=== PATIENT | male | born 1975 | race Native Hawaiian/Other Pacific Islander ===

== ENCOUNTER 2017-05-23 14:27 | Emergency (ER) | payer BC ==
[2017-05-23 14:35] VITALS: TEMP 97.8
[2017-05-23 15:20] LABS: BASO # 0.1 K/uL (0.0-0.2); BASO % 1.1 % (0.0-2.0); EOS # 0.1 K/uL (0.0-0.7); EOS % 2.3 % (0.0-4.0); HEMOGLOBIN 16.7 g/dL (12.0-18.0); LYMPH # 2.3 K/uL (1.0-4.3); LYMPH % 42.4 % (20.0-40.0); MEAN CELL VOLUME 87.1 fL (80.0-94.0); MEAN CORPUSCULAR HGB CONC 34.4 g/dL (33.0-37.0); MEAN PLATELET VOLUME 7.6 fL (7.2-11.7); MONO # 0.6 K/uL (0.0-0.8); MONO % 11.3 % (0.0-10.0); NEUT # 2.3 K/uL (1.8-7.0); NEUT % 42.9 % (50.0-75.0); NRBC % 0.1 % (0.0-2.0); RBC 5.55 Mil/uL (4.40-5.90); RED CELL DISTRIBUTION WIDTH 14.2 % (11.5-14.5); WHITE BLOOD COUNT 5.3 K/uL (4.8-10.8)
[2017-05-23 15:43] LABS: CALCIUM 8.7 mg/dl (8.6-10.4); GFR AFRICAN-AMERICAN > 60; GFR NON-AFRICAN AMERICAN > 60; LIPASE 274 U/L (23-300)
[2017-05-23 15:47] LABS: ALB/GLOB RATIO 1.2 (1.0-2.1); ALBUMIN 4.5 g/dL (3.5-5.0); ALT/SGPT 32 U/L (21-72); AST/SGOT 30 U/L (17-59); BLOOD UREA NITROGEN 12 mg/dL (9-20)
[2017-05-23 15:53] LABS: URINE BILIRUBIN NEGATIVE (NEGATIVE); URINE BLOOD NEGATIVE (NEGATIVE); URINE CLARITY Clear (Clear); URINE COLOR Colorless (YELLOW); URINE GLUCOSE (UA) NORMAL (Normal); URINE LEUKOCYTE ESTERASE NEG Leu/uL (Negative); URINE PROTEIN NEGATIVE (NEGATIVE); URINE UROBILINOGEN NORMAL mg/dL (0.2-1.0)
[2017-05-23 15:55] LABS: BARBITURATES, UR NEGATIVE (NEGATIVE); BENZODIAZEPINES, UR NEGATIVE (NEGATIVE); OPIATES, UR NEGATIVE (NEGATIVE); PHENCYCLIDINE, UR NEGATIVE (NEGATIVE)
--- NOTE | 2017-05-23 16:23 | C.PDOC ---
History Of Present Illness 41 year old male presents to the ED for evaluation of cramping abdominal pain and a syncopal episode which occurred while he was at work earlier today. 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 He states his abdominal pain caused him to clump to the ground and have momentary loss of consciousness after a period of greyout. Patient immediately felt palpitations and returned to his baseline neurological status. Patient denies dizziness, vision change, nausea, vomiting. Patient states he has been taking osmotic laxatives to relieve constipation for the past week. His diet normally consists of rice, bread, cooked vegetables, scant raw meat, and salad Time Seen by Provider: 05/23/17 14:50 Chief Complaint (Nursing): Chest Pain History Per: Patient History/Exam Limitations: no limitations Onset/Duration Of Symptoms: Hrs Current Symptoms Are (Timing): Better Quality: "Pain", Other (cramping ) Additional History Per: Patient Past Medical History Reviewed: Historical Data, Nursing Documentation, Vital Signs Vital Signs: Last Vital Signs Temp 97.8 F 05/23/17 14:33 Pulse 71 05/23/17 16:30 Resp 16 05/23/17 16:30 BP 142/81 05/23/17 16:30 Pulse Ox 99 05/23/17 23:00 - Medical History PMH: No Chronic Diseases Surgical History: No Surg Hx Family History: States: Unknown Family Hx - Social History Hx Alcohol Use: No Hx Substance Use: No Review Of Systems Eyes: Negative for: Vision Change Gastrointestinal: Negative for: Nausea, Vomiting Neurological: Positive for: Other (LOC ). Negative for: Dizziness Physical Exam - Physical Exam Appears: Non-toxic, No Acute Distress Skin: Warm, Dry, Other (suprapubic scaling with minimal erythema 6x6 cm) Head: Atraumatic, Normacephalic Eye(s): bilateral: Normal Inspection Oral Mucosa: Moist Neck: Supple Chest: Symmetrical, No Deformity, No Tenderness Cardiovascular: Rhythm Regular, No Murmur Respiratory: Normal Breath Sounds, No Rales, No Rhonchi, No Wheezing Gastrointestinal/Abdominal: Soft, No Guarding, No Rebound, Other (dull and tympanic to percussion ) Extremity: Normal ROM, Capillary Refill (less than 2 seconds ) Neurological/Psych: Oriented x3, Normal Speech, Normal Cognition ED Course And Treatment - Laboratory Results Result Diagrams: 05/23/17 15:15 05/23/17 15:15 Lab Interpretation: Normal (trop neg.) ECG: Interpreted By Me ECG Rhythm: Sinus Rhythm ECG Interpretation: Normal Rate From EC O2 Sat by Pulse Oximetry: 99 (on RA ) Pulse Ox Interpretation: Normal - Radiology CXR: Interpreted by Me CXR Interpretation: Yes: No Acute Disease - Other Rad abd x 2 X-Ray: Interpreted by Me (moderate stool and gas) Progress Note: Bloodwork, urinalysis, EKG, Obstructive Series Abdomen ordered and reviewed. Reevaluation Time: 16:21 Reassessment Condition: Improved Medical Decision Making Medical Decision Making: belly cramping due to laxative abuse and poor diet no sig constipation now vasovagal syncope, initially tima then immediately tachy (per hx) and normal w/ u defer head CT, not indicated. tinea cruris, prob related to hot/humid work environment with excessive walking as a air conditioning installer supervisor failed 1 week of PO diflucan by PMD Lotrisone topical for 1 week. Disposition Doctor Will See Patient In The: Office Counseled Patient/Family Regarding: Studies Performed, Diagnosis - Disposition Referrals: José Luis Noguera MD [Staff Provider] - Disposition: HOME/ ROUTINE Disposition Time: 16:22 Condition: GOOD Additional Instructions: diet and exercise changes as recommended 7 fresh fruits and vegetables daily Drink plenty of water/tea Avoid overuse of laxatives- may cause severe belly pains. Normal evaluation today: labs/urinalysis/CXR/abd films/ekg Prescriptions: Clotrimazole/Betamethasone [Lotrisone] 15 gm EXT BID #1 tube Instructions: Constipation in Adults, Syncope (Fainting) (DC), Jock Itch (DC) Forms: [employer] (Citizen Of [place]) - Clinical Impression Clinical Impression: Vasovagal syncope, Laxative abuse, Tinea cruris - Scribe Statement The provider has reviewed the documentation as recorded by the Scribe (Tania Walton) Provider Attestation: All medical record entries made by the Scribe were at my direction and personally dictated by me. I have reviewed the chart and agree that the record accurately reflects my personal performance of the history, physical exam, medical decision making, and the department course for this patient. I have also personally directed, reviewed, and agree with the discharge instructions and disposition.
--- NOTE | 2017-05-23 16:24 | RAD ---
PROCEDURE: Radiographs of the chest and abdomen (obstructive series) HISTORY: Abdominal pain COMPARISON: No prior. TECHNIQUE: AP radiograph of the chest, with upright and supine radiographs of the abdomen. FINDINGS: CHEST: Lungs: The lungs are well inflated and clear. Cardiovascular: Normal size heart. No pulmonary vascular congestion. Pleura: No pleural fluid. No pneumothorax. Other findings: None. ABDOMEN AND PELVIS: Bowel: The bowel gas pattern is nonspecific. No evidence of mechanical obstruction. Free air: None. Bones: Unremarkable. Other findings: None. IMPRESSION: Nonobstructive bowel-gas pattern. Clear lungs.
[2017-05-23 16:31] VITALS: BP 142/81; PULSE 71; RESP 16
[2017-05-23 17:15] VITALS: O2SAT 99
--- NOTE | 2017-05-24 23:26 | CARD ---
APPROVED REPORT EKG Measurement Heart [id number] ME 142P62 [id number] <Conclusion> Normal sinus rhythm Normal ECG
== END 2017-05-23 16:30 | disposition home or self-care (01) ==
LOC: C.ER 14:27
DX: R55 Syncope and collapse (principal); F55.2 Abuse of laxatives; B35.6 Tinea cruris
CPT/HCPCS: 74022; 80053; 81001; 83690; 84484; 85025; 93005; 99284; G0480